=== PATIENT | male | born 1990 | race Caucasian/White ===

== ENCOUNTER 2023-05-22 12:26 | Day surgery (SDC) | payer OTHER, SELFPAY ==
[2023-05-22 12:58] VITALS: BP 112/65; PULSE 81; RESP 18; TEMP 36.7; O2SAT 94; BMI 34.8
[2023-05-22] MEDS: Lactated Ringers 1,000 ML 15 ML IV (13:08)
--- NOTE | 2023-05-22 16:40 | HP.PCM_ITS ---
HPI - General General Date of Service: 05/22/23 Chief Complaint: Neurogenic bladder HPI Narrative HAYLEY GRADY, is a 32 M who presents for injection of Botox 300 units in the bladder PFS Medical History (Updated 05/13/23 @ 16:10 by Alana Parra) Alcohol use Chewing tobacco use Easy bruising Fatty liver History of echocardiogram History of irregular heartbeat Migraine headache Paraplegia at T4 level Self-catheterizes urinary bladder Uses wheelchair Home Medications oxybutynin chloride 5 mg tablet 15 mg PO BID 03/29/14 [History Last Taken Unkn own] ibuprofen 200 mg capsule 200 mg PO Q8H PRN pain 05/13/23 [History Last Taken Unknown] pimecrolimus 1 % topical cream (Elidel) 1 applic topical BID 05/13/23 [History Last Taken Unknown] sulfacetamide sodium (acne) 10 % lotion (suspension) 1 applic topical QHS 05/13/23 [History Last Taken Unknown] sulfamethoxazole 800 mg-trimethoprim 160 mg tablet 1 tab PO MOWEFR 05/13/23 [History Last Taken Unknown] Allergy/AdvReac Type Severity Reaction Status Date / Time No Known Allergies Allergy Verified 05/22/23 12:58 Surgical History (Updated 05/13/23 @ 16:00 by Alana Parra) History of cystoscopy History of inguinal hernia repair History of meniscectomy of right knee History of spinal fusion Social History Smoking Status: Never smoker Vital Signs Vital Signs Vital Signs: 05/22/23 12:58 05/22/23 12:58 Temperature 98.0 F Temperature Source Temporal Pulse Rate 81 Respiratory Rate 18 Respiratory Pattern Normal Blood Pressure 112/65 Blood Pressure Mean 80 Blood Pressure Source Monitor Blood Pressure Position Semi-Fowlers Blood Pressure Location Right Arm Pulse Ox 94 Oxygen Delivery Method Room Air Weight Weight: 113.398 kg Body Mass Index (BMI) 34.8
--- NOTE | 2023-05-22 16:41 | DCINST_ITS ---
Discharge Instructions Diet Discharge Diet: No restrictions Activity Discharge Activity: Return to Normal Activity and May Not Drive (while taking narcotic pain medications.) Dressing / Incision Call your doctor if you observe: Fever of 101 or Higher Follow Up Care Please Follow Up With: Charlie Schroeder MD When: Call [phone] for an appointment Test Results: Test results from this visit will be discussed in further detail at your follow- up appointment, if applicable. Discharge Plan Admission Primary Reason for Your Visit: botox 300 U Attending Provider: Charlie Schroeder Primary Care Provider: Jax Garay Discharge Orders/Prescriptions Prescriptions: Continued oxybutynin chloride 5 MG tablet 15 mg PO BID Patient Comments: BLADDER SPASMS sulfamethoxazole-trimethoprim 800-160 mg tablet 1 tab PO MOWE Patient Comments: TAKE 1 TABLET BY MOUTH EVERY SATURDAY, SATURDAY, and SATURDAY sulfacetamide sodium (acne) 10 % suspension 1 applic TOPICAL QHS Patient Comments: Apply every night to the forehead pimecrolimus [Elidel] 1 % cream 1 applic topical BID ibuprofen 200 mg capsule 200 mg PO Q8H PRN (Reason: pain) Patient Comments: NOT TO TAKE FOR 7 DAYS PREOP Referrals / Follow Up: Jax Garay MD [Primary Care Provider] - Disposition Disposition (needs filled in before D/C Order can be placed): Home, Self Care
[2023-05-22] MEDS: Cefazolin 2 GM in 0.9% Normal Saline 100 ML IV (17:07)
[2023-05-22] MEDS: Botulinum Toxin A 100 Units Vial 300 UNITS IJ (17:13)
--- NOTE | 2023-05-22 17:17 | OP.PCM_ITS ---
Report of Operation Date of Procedure: 05/22/23 Pre-Operative Diagnosis: Neurogenic bladder Post-Operative Diagnosis: The same Surgery/Procedure Performed:: Injection of Botox 300 units into the bladder and cystoscopy Description of Surgical Findings:: Patient has a history of an urge incontinence which is failed conservative measures and medical therapy. Today the patient presents to the hospital for an injection of Botox into the bladder. The patient understands the risk of the procedure involved bleeding, infection, paralytic bladder and failure to empty the bladder. The possibility of needing a catheter or self intermittent cat heterization of the bladder is not able to function properly. The risk of infection and bleeding and the risk of anesthesia was discussed with the patient. Patient signed the consent form and we proceeded to the operating room. Patient was taken back to the operating room after induction of anesthesia, the patient was placed supine on the table in the legs were placed in dorsolithotomy position. The genitals and urethra were prepped and draped in usual sterile fashion. Using a 21 [place] offset cystoscope I went into the bladder via the urethra. The bladder was inspected. The trigone was normal. The left and right ureter orifice were identified. Bladder was heavily trabeculated. On the back table the Botox medication was prepared per the retail warehouse supervisor's instruction, a total of 300 units of Botox were prepared. We then used a Botox needle through the cystoscope and then injected 1 cc of Botox solution into each site going through a matrix pattern in the back of the bladder to inject about every centimeter across the back of the bladder in several layers avoiding the trigone. After a total of 300 units of Botox was injected into the bladder there was minimal bleeding. The bladder was drained. The patient's anesthetic was reversed and the patient was taken back to the PACU in stable condition. Surgeon: Charlie Schroeder Type of Anesthesia: IV Sedation Admit VTE Documentation VTE Present on Admission: No VTE Mechan Device Prophylaxis: SCD's VTE Pharm Prophylaxis ordered?: No
[2023-05-22 17:24] VITALS: BP 112/65; BP 120/56; PULSE 73; RESP 16; TEMP 37.1; O2SAT 100
[2023-05-22 17:30] VITALS: BP 112/65; BP 114/65; PULSE 75; RESP 16; O2SAT 100
[2023-05-22 17:35] VITALS: BP 112/65; BP 98/65; PULSE 73; RESP 16; O2SAT 99
[2023-05-22 17:40] VITALS: BP 112/65; BP 113/60; PULSE 70; RESP 16; TEMP 36.8; O2SAT 99
[2023-05-22 18:05] VITALS: BP 112/65
== END 2023-05-22 18:08 | disposition home or self-care (01) ==
LOC: SDC 12:26 → AC 12:29
PROVIDERS: PCP Family Medicine; Referring Provider Urology; Visit Provider Urology
PROC: 3E0K8GC Introduction of Other Therapeutic Substance into Genitourinary Tract, Via Natural or Artificial Opening Endoscopic (ICD-10-PCS; CPT 52287; principal; 2023-05-22 14:25)
DX: N31.9 Neuromuscular dysfunction of bladder, unspecified (principal); K76.0 Fatty (change of) liver, not elsewhere classified; F17.220 Nicotine dependence, chewing tobacco, uncomplicated
CPT/HCPCS: 52000; 53899; 00910; J7120; J0585; J2405; J3490